=== PATIENT | female | born 1965 | race Hispanic/Latino ===

== ENCOUNTER 2017-02-17 15:45 | Emergency (ER) | payer MEDICARE ==
[2017-02-17] MEDS ORDERED: ROCEPHIN ONE (19:38)
[2017-02-17] MEDS ORDERED: MORPHINE ONE (19:39)
[2017-02-17] MEDS ORDERED: ZOFRAN ONE (19:39)
[2017-02-17] MEDS ORDERED: NACL 0.9% 1000 ML 1,000 ML ONE (19:40)
[2017-02-17] MEDS ORDERED: ROCEPHIN/NS 1 GM/50 ML 1 GM/50 ML BAG IV ONE (19:49)
[2017-02-17] MEDS ORDERED: LEVAQUIN PO ONE (21:44)
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
[2017-02-18 13:15] LABS: Bilirubin,Urine Negative (Negative); Blood,Urine Large (Negative); Ketones,Urine Negative (Negative); Leukocyte Esterase,Urine Large (Negative); Nitrite,Urine Positive (Negative); Urobilinogen,Urine < 2.0 mg/dL (<2.0)
[2017-02-18 13:16] LABS: Bacteria,Urine 1+ /HPF (Negative); Mucus,Urine 3+ /HPF
== END 2017-02-17 23:05 | disposition home or self-care (01) ==
LOC: ED 15:45
DX: N12 Tubulo-interstitial nephritis, not specified as acute or chronic (principal); N30.00 Acute cystitis without hematuria; I10 Essential (primary) hypertension
CPT/HCPCS: 36415; 81001; 82140; 87040; 99283; J0696; J2270; J2405; J7030